=== PATIENT | female | born 1955 | race American Indian/Alaskan Native ===

== ENCOUNTER 2021-08-03 22:04 | Emergency (ER) | payer SELFPAY ==
[~2021-08-03] VITALS: Ht 165.1 cm; Wt 61.2 kg
[2021-08-03 22:31] LABS: HEMATOCRIT 42.5 % (31.2-41.9); MEAN CORPUSCULAR VOLUME 87.3 fL (75.5-95.3); PLATELET COUNT (AUTO) 276 K/uL (179-408)
[2021-08-03] MEDS: diphenhydrAMINE 50 MG/1 ML VIAL IV ONE (22:36)
[2021-08-03] MEDS: LORAZEPAM 2 MG/1 ML VIAL IV ONE (22:36)
[2021-08-03] MEDS ORDERED: diphenhydrAMINE 50 MG/1 ML VIAL ONE (22:37)
[2021-08-03] MEDS ORDERED: LORAZEPAM 2 MG/1 ML VIAL ONE (22:37)
[2021-08-03] MEDS: methylPREDNISolone SOD SUCC 125 MG/2 ML VIAL IV ONE (22:37)
[2021-08-03] MEDS ORDERED: methylPREDNISolone SOD SUCC 125 MG/2 ML VIAL ONE (22:43)
[2021-08-03 22:46] LABS: CREATININE 0.7 mg/dL (0.6-1.3); POTASSIUM 4.1 mmol/L (3.5-5.1)
[2021-08-03 22:59] LABS: BILIRUBIN,DIRECT 0.1 mg/dL (0.0-0.2); BILIRUBIN,TOTAL 0.3 mg/dL (0.2-1.0); TOTAL PROTEIN, SERUM 8.3 g/dL (6.4-8.2)
[2021-08-03] MEDS: RACEPINEPHRINE HCL 2.25% 0.5 ML NEBU NEB ONE (23:40)
[2021-08-03] MEDS ORDERED: RACEPINEPHRINE HCL 2.25% 0.5 ML NEBU ONE (23:43)
[2021-08-04] MEDS ORDERED: LORA-259 PO (00:31)
[2021-08-04] MEDS ORDERED: CODE10LI PO (00:31)
--- NOTE | 2021-08-04 00:42 | NUR ---
IV removed. Catheter intact and site benign. Pressure and 4x4 gauze applied to site. No bleeding noted. Patient does not wish to proceed with medical care recommended by Dr. Renteria. Patient given information related to possible complications, up to and including , which could occur as a result of leaving the hospital at this time. Patient verbalizes understanding of risks involved due to leaving against medical advice. Patient has signed AMA form. Patient left ER in stable condition w/ who is driving her home.
[2021-08-04 00:43] VITALS: BP 111/75
== END 2021-08-04 00:44 | disposition left against medical advice (07) ==
LOC: ER 22:07
DX: R05.9 Cough, unspecified (principal); T78.1XXA Other adverse food reactions, not elsewhere classified, initial encounter; Z79.899 Other long term (current) drug therapy; Z20.822 Contact with and (suspected) exposure to COVID-19
CPT/HCPCS: 36415; 71045; 80048; 80076; 83880; 84484; 85025; 85379; 85730; 87426; 93005; 94640; 96374; 96375; 99285; J1200; J2060; J2930; 70030-TC; A4663